=== PATIENT | female | born 1980 | race Caucasian/White ===

== ENCOUNTER → 2023-02-09 | Outpatient (CLI) | payer OTHER ==
[2023-02-09 12:23] LABS: HEMATOCRIT 45 % (35-52); HEMOGLOBIN 15.3 g/dL (11.5-16.0); MEAN CORPUSCULAR HEMOGLOBIN 30 pg (25-34); MEAN CORPUSCULAR HGB CONC 34 g/dL (32-36); MEAN CORPUSCULAR VOLUME 88 fL (80-99); MEAN PLATELET VOLUME 9.2 fL (9.0-12.2); PLATELET COUNT 270 10^3/uL (130-400)
[2023-02-09 12:42] LABS: CHLORIDE 105 MMOL/L (98-107)
[2023-02-09 12:43] LABS: ALBUMIN 4.7 GM/DL (3.2-4.5); POTASSIUM 4.3 MMOL/L (3.6-5.0); SODIUM 139 MMOL/L (135-145)
[2023-02-09 12:45] LABS: GLUCOSE 104 MG/DL (70-105); TOTAL PROTEIN 8.4 GM/DL (6.4-8.2); TRIGLYCERIDES 201 MG/DL (<150); VLDL CHOLESTEROL 40 MG/DL (5-40)
[2023-02-09 12:46] LABS: CARBON DIOXIDE 23 MMOL/L (21-32)
[2023-02-09 12:47] LABS: BILIRUBIN,TOTAL 0.4 MG/DL (0.1-1.0)
[2023-02-09 12:49] LABS: ALKALINE PHOSPHATASE 85 U/L (40-136); CREATININE SERUM 0.72 MG/DL (0.60-1.30); GFR ESTIMATED 106
[2023-02-09 12:50] LABS: BUN/CREATININE RATIO 14; CHOLESTEROL 206 MG/DL (< 200)
[2023-02-09 12:51] LABS: HDL CHOLESTEROL 43 MG/DL (40-60)
[2023-02-09 12:52] LABS: ALANINE AMINOTRANSFERASE 36 U/L (0-55)
--- NOTE | 2023-02-09 12:56 | Diagnostic Imaging Report ---
PROCEDURE: US left lower extremity venous. TECHNIQUE: Multiple real-time grayscale images were obtained over the left lower extremity in various projections. Additional duplex Doppler and color Doppler images were also obtained. INDICATION: Left leg pain and swelling. There is no evidence of left lower extremity DVT. Left lower extremity deep venous system shows normal compressibility with normal response to augmentation and Valsalva. No fluid collection or mass is detected. IMPRESSION: No evidence of left lower extremity DVT. Dictated by: Dictated on workstation # [id number]
== END ==
LOC: RAD 12:10
PROVIDERS: ATTEND Family Medicine
DX: M79.605 Pain in left leg (principal); M79.89 Other specified soft tissue disorders; Z83.2 Family history of diseases of the blood and blood-forming organs and certain disorders involving the immune mechanism
CPT/HCPCS: 36415; 80053; 80061; 85027